=== PATIENT | female | born 1950 | race Caucasian/White ===

== ENCOUNTER 2018-12-20 09:51 | Inpatient (IN) ==
[2018-12-20] MEDS ORDERED: ANTIVERT PO ONE (10:17)
[2018-12-20] MEDS ORDERED: NS 1,000 ML ONE (10:32)
[2018-12-20] MEDS ORDERED: NS 1,000 ML IV ONE (10:51)
[2018-12-20 10:52] LABS: BASO# 0.04 X1000 (0.0-0.2); BASO% 0.4 % (0.0-0.8); EOS# 0.13 X1000 (0.0-0.7); EOS% 1.2 % (0.0-10.0); HEMATOCRIT 39.1 % (37.0-47.0); IMM GRAN# 0.04 X1000 (0.0-0.04); IMM GRAN% 0.4 % (0.0-0.5); LYMPH# 1.25 X1000 (1.2-3.4); LYMPH% 11.3 % (20.5-51.1); MCH 30.4 PG (27-31); MCHC 33.2 g/dL (33-37); MCV 91.4 FL (81-99); MONO# 0.58 X1000 (0.11-0.59); MONO% 5.2 % (1.7-9.3); MPV 11.4 FL (7.4-10.4); NEUT# 9.02 X1000 (1.4-6.5); NEUT% 81.5 % (42.2-75.2); PLT 319 X1000 (130-400); RBC 4.28 XMIL (4.2-5.4); RDW 14.6 % (11.5-14.5); WBC 11.06 X1000 (4.8-10.8)
--- NOTE | 2018-12-20 11:11 | EKG Report ---
Test Performed on : 12/20/2018 10:03:57 AM Test Reason : dizzy Blood Pressure : / mmHG Vent. Rate : 065 BPM Atrial Rate : 065 BPM P-R Int : 130 ms QRS Dur : 090 ms QT Int : 440 ms P-R-T Axes : -07 -35 -27 degrees QTc Int : 457 ms Normal sinus rhythm. Left axis deviation Voltage criteria for left ventricular hypertrophy Inferior infarct , age undetermined Abnormal ECG No previous ECGs available Unconfirmed Result
[2018-12-20 11:15] LABS: ALBUMIN 3.9 g/dL (3.5-5.0); CALCIUM 9.9 mg/dL (8.8-10.2); CREATININE 2.2 mg/dL (0.5-0.9); POTASSIUM 3.4 mmol/L (3.5-5.1); TOTAL BILIRUBIN 0.5 mg/dL (0.20-1.00); TOTAL PROTEIN 7.8 g/dL (6.3-8.3)
[2018-12-20 11:16] LABS: PROTIME 13.7 Seconds (11.0-16.0)
--- NOTE | 2018-12-20 11:39 | Diag Imaging Result Doc PS360 ---
EXAM: CT HEAD W/O CONTRAST INDICATION: vertigo TECHNIQUE: This exam was performed using automated exposure control, adjustment of mA or kV according to patient size, and/or use of iterative reconstruction technique. COMPARISON: None. FINDINGS: There is focal encephalomalacia involving the left cerebellar hemisphere indicating a chronic infarct. There is no definite acute infarct given the limited sensitivity of CT versus MRI. There is no discrete intracranial mass, mass effect, or intracranial hemorrhage. The surrounding soft tissues and bony structures are essentially unremarkable. The mastoid air cells and middle ear cavities appear to be clear. IMPRESSION: Left cerebellar hemisphere encephalomalacia. No evidence of acute intracranial pathology by CT. Electronically signed by Jagdeep Briggs 12/20/2018 11:37 AM
[2018-12-20] MEDS ORDERED: DUONEB (A & A) INH PRN (12:44)
[2018-12-20] MEDS ORDERED: ZOFRAN IV PRN (12:44)
[2018-12-20] MEDS ORDERED: TYLENOL PO PRN (12:44)
--- NOTE | 2018-12-20 13:32 | Diag Imaging Result Doc PS360 ---
EXAM: CHEST-1 VIEW INDICATION: weakness TECHNIQUE: One view COMPARISON: None. FINDINGS: The lungs are grossly clear. There is no discrete pleural fluid collection or pneumothorax. The cardiomediastinal silhouette and central vasculature are grossly unremarkable. IMPRESSION: No evidence of acute pathology by plain radiograph. Electronically signed by Jagdeep Briggs 12/20/2018 1:30 PM
[2018-12-20] MEDS: SYNTHROID PO SCH (14:39)
--- NOTE | 2018-12-20 15:15 | HISTORY AND PHYSICAL ---
CHIEF COMPLAINT: Dizziness. ALLERGIES: Penicillin causing a rash, codeine. MEDICATIONS: Do not have an active medication list, although she does take several blood pressure medications at home, as well as hydrocodone and a benzodiazepine. SUBJECTIVE: Patient presented to the hospital complaining of weakness, fatigue and dizziness. She states symptoms started yesterday; however, her daughter notes that she has been somewhat progressively getting weaker over the last several weeks. States she has been checking her blood sugars at home and they have been in the 140s to 190s. Does not check her blood pressures at home. Denies any chest pain, palpitations. Denies nausea, vomiting, shortness of breath. Denies diarrhea, constipation, or urinary complications. REVIEW OF SYSTEMS: Patient denies any GI or issues currently. Denies any chest pains, fevers, chills, headaches, blurred vision. States she has just been increasingly weak and fatigued. She has had decreased oral intake. Notes that she has been stressed lately. Her father had passed about 6 years ago, and she has been taking care of her mother since then; however, that had become too problematic and she has had recently put her mom in a residential and this has caused her to be stressed, tired, and fatigued. States that when she stands up she feels like she is going to pass out. Did not lose consciousness or fall. She has had some sweating episodes once she stood up. PAST MEDICAL HISTORY: Hypertension, chronic pain, chronic anxiety, hypothyroidism. SOCIAL HISTORY: Patient does not smoke or drink. Denies illicit substances. She just recently moved to [place] from [place] so her daughter can help her. FAMILY HISTORY: Positive for hypertension. PHYSICAL EXAMINATION: VITAL SIGNS: Reviewed. Temperature 98 degrees, pulse 66, respiratory rate 18, BP current 135/89; however, her blood pressures upon arrival were 70s to 80s systolic. GENERAL: Patient is awake and alert. She is somewhat fatigued, but very pleasant to talk with. HEENT: Normocephalic. NECK: Supple. CARDIOVASCULAR: Regular rate. No murmurs. CHEST: Clear, nonlabored. ABDOMEN: Soft, nondistended. EXTREMITIES: Moves all extremities. NEUROLOGIC: No focal changes. ASSESSMENT: 1. Hypotension. 2. Adult failure to thrive. 3. Depression. 4. Volume depletion secondary to poor oral intake. 5. Other. PLAN: We will admit patient to the hospital. Continue IV fluids. We will check blood and urine cultures as the cause of her volume depletion, although it may be simply depression and lack of oral intake. She has continued to take her home blood pressure medications which certainly could be contributing, if not causing, her blood pressures to be low. We will admit to the hospital and will follow. cc: Cody Ferrari MD
[2018-12-20] MEDS: NS 1,000 ML IV SCH (15:19)
[2018-12-20] MEDS: HUMALOG (PARKWAY) SUBQ SCH ×2 (17:11→21:15)
[2018-12-20] MEDS: GLUCOPHAGE PO SCH (17:18)
[2018-12-20] MEDS: MAG-OX PO SCH (21:15)
[2018-12-20] MEDS: COREG PO SCH (22:39)
[2018-12-20] MEDS: APRESOLINE PO SCH (22:39)
[2018-12-20 23:31] LABS: URINE BACTERIA 3+ /HFP; URINE EPITHELIAL CELLS <10 /HPF (<10); URINE RBC <10 /HPF (<10); URINE SOURCE CLEAN CATCH; URINE WBC <10 /HPF (<10)
[2018-12-20 23:32] LABS: BILIRUBIN URINE NEGATIVE (NEGATIVE); BLOOD URINE NEGATIVE (NEGATIVE); CLARITY CLEAR (CLEAR); COLOR YELLOW; KETONE URINE TRACE mg/dL (NEGATIVE); LEUKOCYTES URINE TRACE (NEGATIVE); NITRITE URINE NEGATIVE (NEGATIVE); SP GRAVITY URINE 1.015; UROBILINOGEN URINE NORMAL
[2018-12-21] MEDS: NS 1,000 ML IV SCH ×2 (01:12→11:01)
[2018-12-21] MEDS ORDERED: CATAPRES PO ONE (06:02)
[2018-12-21] MEDS: SYNTHROID PO SCH (06:13)
[2018-12-21] MEDS: HUMALOG (PARKWAY) SUBQ SCH ×4 (06:16→21:03)
[2018-12-21 06:45] LABS: HEMATOCRIT 32.6 % (37.0-47.0); HEMOGLOBIN 10.5 g/dL (12.0-16.0); MCH 30.1 PG (27-31); MCHC 32.2 g/dL (33-37); MCV 93.4 FL (81-99); MPV 11.4 FL (7.4-10.4); RBC 3.49 XMIL (4.2-5.4); RDW 14.4 % (11.5-14.5); WBC 7.82 X1000 (4.8-10.8)
[2018-12-21 07:10] LABS: ALBUMIN 3.2 g/dL (3.5-5.0); CALCIUM 8.6 mg/dL (8.8-10.2); CREATININE 2.4 mg/dL (0.5-0.9); MAGNESIUM 1.5 mg/dL (1.5-2.7); POTASSIUM 3.8 mmol/L (3.5-5.1); TOTAL BILIRUBIN 0.3 mg/dL (0.20-1.00); TOTAL PROTEIN 6.4 g/dL (6.3-8.3)
[2018-12-21] MEDS: MAG-OX PO SCH ×2 (08:03→21:03)
[2018-12-21] MEDS: APRESOLINE PO SCH (08:03)
[2018-12-21] MEDS: GLUCOPHAGE PO SCH (08:03)
--- NOTE | 2018-12-21 15:12 | PROGRESS NOTE ---
DATE: 12/21/2018 SUBJECTIVE: The patient reports feeling fine. Reports less dizzy. Mild headache noted. OBJECTIVE: Vital Signs: Temperature 97.7 degrees, heart rate 54, respiratory rate 18, blood pressure 179/66, O2 saturation 98% on room air. General Examination: This is a 68-year-old, female lying in bed, in no acute distress. HEENT: Head is normocephalic and atraumatic. Neck: No JVD noted. No carotid bruits. No lymphadenopathy. No thyromegaly. Cardiovascular Examination: S1 and S2 heard. No murmurs, gallops, or rubs. Regular rate and rhythm. Respiratory Examination: Clear bilaterally to auscultation. No work of breathing or using accessory muscles. Abdomen: Soft, nontender to palpation. Bowel sounds present. No organomegaly. Extremities: No clubbing, cyanosis, or edema. Peripheral pulses present in both legs. Neurological Examination: The patient is alert and oriented x3. Moves 4 extremities. Laboratory Data: Remarkable for creatinine of 2.4. Hemoglobin 10.5, normal white cell count. ASSESSMENT AND PLAN: 1. Hypotension on admission. Now, this patient is hypertensive. His blood pressure has reached 170 and 200 early this morning. At this time, I prefer to restart home medications. The patient is taking clonidine and beta-blockers, and those have all opposite effects. In that regard, I prefer just to slowly decrease the doses of carvedilol. We will restart the clonidine home doses. We will put back the doses of hydralazine to how this patient was taking it at home. We will monitor this patient closely. 2. Chronic kidney disease. I do not have any previous labs to compare his renal function. Creatinine was mildly elevated on admission at 2.2. Today, it is 2.4. We will continue to monitor the BMP. 3. Volume depletion secondary to poor oral intake, resolved. 4. Disposition. At this point, I have started blood pressure medication. We will see how this patient does. If blood pressure is much better controlled tomorrow, she can be discharged. cc: Hira Boswell MD [facility]
[2018-12-21] MEDS: COREG PO SCH (15:24)
[2018-12-21] MEDS ORDERED: APRESOLINE PO SCH (21:00)
[2018-12-21] MEDS ORDERED: COREG PO SCH (21:00)
[2018-12-21] MEDS: CATAPRES PO SCH (21:03)
[2018-12-21] MEDS: APRESOLINE IV PRN (22:23)
[2018-12-21] MEDS: NORVASC PO SCH (22:23)
[2018-12-22] MEDS: SYNTHROID PO SCH (06:10)
[2018-12-22] MEDS: HUMALOG (PARKWAY) SUBQ SCH ×4 (06:15→21:23)
[2018-12-22 07:54] LABS: HEMATOCRIT 34.1 % (37.0-47.0); MCHC 32.3 g/dL (33-37); MCV 92.9 FL (81-99); MPV 10.8 FL (7.4-10.4); RBC 3.67 XMIL (4.2-5.4); RDW 14.3 % (11.5-14.5); WBC 7.42 X1000 (4.8-10.8)
[2018-12-22 08:15] LABS: CREATININE 2.2 mg/dL (0.5-0.9); POTASSIUM 3.7 mmol/L (3.5-5.1)
[2018-12-22] MEDS: CATAPRES PO SCH ×2 (08:55→21:22)
[2018-12-22] MEDS: MAG-OX PO SCH ×2 (08:55→21:22)
[2018-12-22] MEDS: NORVASC PO SCH ×2 (08:55→21:22)
[2018-12-22] MEDS: APRESOLINE PO SCH ×3 (08:55→16:23)
--- NOTE | 2018-12-22 14:12 | PROGRESS NOTE ---
DATE: 12/22/2018 SUBJECTIVE: The patient reports feeling fine. Some headache noted and just the blood pressure has been really high in the range of 200. OBJECTIVE: Vital Signs: Temperature 97.3 degrees, heart rate 56, respiratory rate 18, blood pressure 193/67, O2 saturation 98% on room air. General: This is a 68-year-old female lying in bed, in no acute distress. Cardiovascular: S1, S2 heard. No murmurs, gallops, or rubs. Regular rate and rhythm. Respiratory: Clear bilaterally to auscultation. No work of breathing or using accessory muscles. Abdomen: Soft, nontender to palpation. Bowel sounds present. No organomegaly. Extremities: No clubbing, cyanosis, or edema. Peripheral pulses present in both legs. Neurological: Patient is alert and oriented x3. Moves 4 extremities. LABORATORY DATA: Reviewed. ASSESSMENT AND PLAN: 1. Hypotension on admission. Actually, patient has uncontrolled hypertension. Blood pressure is still almost 200. We have increased the dose of hydralazine to 25 mg p.o. b.i.d. Also, patient is receiving amlodipine 5 mg p.o. b.i.d. The patient has been on carvedilol 12.5 mg p.o. b.i.d. but because of the severe bradycardia with heart rate around 40 thing, we are going to monitor this patient closely. 2. Chronic kidney disease. Patient notes that she has some degree of kidney disease but she does not know exactly what is her creatinine baseline. In any case, we will continue to monitor BMP. 3. Disposition. At this point, we will continue to monitor this patient closely. Blood pressure is pretty much high. We will continue with same management. cc: Hira Boswell MD
[2018-12-22] MEDS: APRESOLINE IV PRN (21:29)
[2018-12-23] MEDS: HUMALOG (PARKWAY) SUBQ SCH ×2 (06:13→10:24)
[2018-12-23] MEDS: SYNTHROID PO SCH (06:14)
[2018-12-23 06:29] LABS: HEMATOCRIT 36.9 % (37.0-47.0); HEMOGLOBIN 11.8 g/dL (12.0-16.0); MCH 29.5 PG (27-31); MCV 92.3 FL (81-99); MPV 10.9 FL (7.4-10.4); RDW 14.3 % (11.5-14.5); WBC 7.45 X1000 (4.8-10.8)
[2018-12-23 06:49] LABS: CALCIUM 9.5 mg/dL (8.8-10.2); POTASSIUM 3.5 mmol/L (3.5-5.1)
[2018-12-23] MEDS ORDERED: COZAAR PO SCH (09:00)
[2018-12-23] MEDS: CATAPRES PO SCH (09:12)
[2018-12-23] MEDS: MAG-OX PO SCH (09:12)
[2018-12-23] MEDS: NORVASC PO SCH (09:12)
[2018-12-23] MEDS: APRESOLINE PO SCH (09:12)
[2018-12-23 09:20] VITALS: BP 158/76
--- NOTE | 2018-12-23 22:14 | DISCHARGE SUMMARY ---
ADMISSION DATE: 12/20/2018 DISCHARGE DATE: 12/23/2018 ADMISSION DIAGNOSES: 1. Hypotension. 2. Adult failure to thrive. 3. Depression. 4. Volume depletion secondary to poor p.o. intake. DISCHARGE DIAGNOSES: 1. Hypotension on admission now with uncontrolled hypertension in the 200s but was increased on her medications of hydralazine 25 twice a day, amlodipine 5 mg twice a day, carvedilol 12.5 mg twice a day. The higher dosing on the carvedilol did slow the heart rate down to the 40s occasionally but went back up to 50s, 60s, and 70s. 2. Chronic kidney disease. CONSULTATIONS: None. SURGERIES OR PROCEDURES: None. HOSPITAL COURSE: Ms. Rowan Benavides is a 68-year-old female with a medical history of hypertension who takes several blood pressure medications at home as well as hydrocodone and benzodiazepine. Came in complaining of weakness, fatigue, dizziness, and had been progressively weaker over the last several weeks according to the daughter that was at the bedside at the time. She was admitted and treated for hypotension. Her blood pressure medications were held. Then she became uncontrolled hypertensive and had to have several things added back. She was also noted to have adult failure to thrive, depression, and poor p.o. intake which caused some dehydration and volume depletion along with her chronic kidney disease. She was given fluids. Resumed on her blood pressure medications for the blood pressure to be more controlled. Heart rate was noted be in the 40s when her carvedilol was up, but it stabilized now to the 60s and 70s. She was deemed appropriate for discharge home once her vital signs were stable. DISCHARGE VITAL SIGNS: Temperature 97.5 degrees, heart rate 70, respiratory rate 18, blood pressure 158/76, O2 saturation 99% on room air. LABORATORY DATA: White blood cell 7000, hemoglobin 11, hematocrit 36, platelet count is 251,000. Sodium 141, potassium 3.5, BUN 26, creatinine 2. Glucose 128. PERTINENT IMAGING: She had a head CT. Left cerebellar hemispheric encephalomalacia but nothing acute. Chest x-ray, no acute findings on it. EKG with normal sinus rhythm, rate 65, QTc 437. DISCHARGE MEDICATIONS: 1. Allopurinol 300 mg p.o. daily. 2. Catapres 0.1 mg p.o. twice daily. 3. Metformin 500 mg p.o. twice daily. 4. Hydrochlorothiazide 25 mg p.o. daily. 5. Magnesium oxide 400 mg p.o. twice daily. 6. Multivitamin once daily. 7. Albuterol inhaled as needed. 8. Synthroid 50 mcg p.o. daily. 9. Apresoline 25 mg p.o. twice daily. 10. Norvasc 5 mg p.o. twice daily. DISCHARGE ACTIVITY: As tolerated. DISCHARGE DIET: Heart healthy. DISCHARGE FOLLOWUPS: None. DISCHARGE INSTRUCTIONS: If her condition changes, contact her physician and/or return to the emergency department. Changes may include but are not limited to, shortness of breath, increased fatigue, excessive bleeding, unexplained weight loss or gain, unimaginable pain, signs or symptoms of infection. DISCHARGE DISPOSITION: Home. Dictated by RODRIGUEZ Hartley for Hira Boswell MD Addendum: Patient seen and examined by myself. Agree with RODRIGUEZ note. It reflects my assessment and plan. Patient is being discharged from hospital in stable condition and will be seen by primary care doctor in a week. cc: RODRIGUEZ Hartley MD [facility]
== END 2018-12-23 12:55 | disposition home or self-care (01) | DRG 641 ==
LOC: P.ED 09:51 → P.MEDSURG 13:55 → SUATTDRO 13:55
PROVIDERS: ATTEND Internal Medicine
CPT/HCPCS: 36415; 70450; 71010; 71045; 80048; 80053; 81001; 82550; 82948; 83605; 83735; 83880; 84443; 84484; 85025; 85027; 85610; 85730; 87040; 87088; 93005; 94761; 96360; 96361; 99285; A9270; J0360; J1815; J7030; XXXXX